=== PATIENT | female | born 1955 | race African-American/Black ===

== ENCOUNTER 2024-05-26 10:49 | Emergency (ER) | payer OTHER, MEDICAID ==
[~2024-05-26] VITALS: Ht 165.1 cm; Wt 81.0 kg
--- NOTE | 2024-05-26 11:00 | ED.PDOC ---
HPI Comments 68 year old female brought in by EMS presents to the ED with a chief complaint of palpitations onset 1 week. Patient states she has been experiencing intermittent palpitations for the past week, noticed it worsens with movement. Patient has not seen PCP due to change of insurance, called [facility] this morning and was told to call EMS. Patient noticed palpitations worsen last night when she was sleeping. Has not been compliant with DM medication. PMHx DM, HTN. Denies chest pain, shortness of breath, diarrhea, headache, nausea, vomiting, dizziness, blurry vision, fever, chills, dysuria. No other symptoms or modifying factors present at this time. Chief Complaint: Palpitations Time Seen by MD: 10:52 Reviewed Notes: Medications, Allergies Allergies: Coded Allergies: NO KNOWN ALLERGIES (Unverified , 05/26/24) Information Source: Patient, Emergency Med Personnel Mode of Arrival: EMS Severity: Moderate Timing: Weeks Duration: Intermittent Prehospital treatment: None Quality: Other Onset: With Light Exertion, While Asleep Cardiac Risk Factors: HTN, Diabetes History of: None Modifying Factors: Nothing Associated Signs and Symptoms: Palpitations Past Medical History PAST MEDICAL HISTORY: DM, HTN Surgical History: Denies all surgeries UPPER TIER History: No Pertinent UPPER TIER History Family History Family History: Reviewed,noncontributory to illness, No family hx of Cancer, No family hx of DM, No family hx of Heart vonnie, No family hx of HTN, No family hx ofKidney vonnie, No family hx of Liver vonnie, No family hx of Lung vonnie, No family hx of Stroke Social History Smoker: Non-Smoker Alcohol: Denies ETOH Use Drugs: Denies Drug Use Lives In: Home Constitutional: denies: chills, diaphoresis, fatigue, fever, malaise, sweats, weakness, others EENTM: denies: blurred vision, double vision, ear bleeding, ear discharge, ear drainage, ear pain, ear ringing, eye pain, eye redness, hearing loss, mouth pain, mouth swelling, nasal discharge, nose bleeding, nose congestion, nose pain, photophobia, tearing, throat pain, throat swelling, voice changes, others Respiratory: denies: cough, hemoptysis, orthopnea, SOB at rest, shortness of breath, SOB with excertion, stridor, wheezing, others Cardiovascular: reports: palpitations; denies: chest pain, dizzy spells, diaphoresis, Dyspnea on exertion, edema, irregular heart beat, left arm pain, lightheadedness, PND, syncope, others Gastrointestinal: denies: abdomen distended, abdominal pain, blood streaked bowels, constipated, diarrhea, dysphagia, difficulty swallowing, hematemesis, melena, nausea, poor appetite, poor fluid intake, rectal bleeding, rectal pain, vomiting, others Genitourinary: denies: abnormal vagina bleeding, burning, dyspareunia, dysuria, flank pain, frequency, hematuria, incontinence, pain, , vagina discharge, urgency, others Neurological: denies: dizziness, fainting, headache, left sided numbness, left sided weakness, numbness, paresthesia, pre-existing deficit, right sided numb ness, right sided weakness, seizure, speech problems, tingling, tremors, weakness, others Musculoskeletal: denies: back pain, gout, joint pain, joint swelling, muscle pain, muscle stiffness, neck pain, others Integumetry: denies: bruises, change in color, change in hair/nails, dryness, laceration, lesions, lumps, rash, wounds, others Allergic/Immunocompromised: denies: Difficulty Healing, Frequent Infections, Hives, Itching, others Hematologic/Lymphatic: denies: anemia, blood clots, easy bleeding, easy bruising, swollen glands, others Endocrine: denies: excessive hunger, excessive sweating, excessive thirst, excessive urination, flushing, intolerance to cold, intolerance to heat, unexplained weight gain, unexplained weight loss, others Psychiatric: denies: anxiety, bipolar disorder, depression, hopeless, panic disorder, schizophrenia, sleepless, suicidal, others All Other Systems: Reviewed and Negative Physical Exam General Appearance: Moderate Distress, Normal HEENT: Normal ENT Inspection, Pharynx Normal, TMs Normal Neck: Full Range of Motion, Non-Tender, Normal, Normal Inspection Respiratory: Chest Non-Tender, Lungs Clear, No Accessory Muscle Use, No Respiratory Distress, Normal Breath Sounds Cardiovascular: No Edema, No JVD, No Murmur, No Gallop, Normal Peripheral Pulses, Regular Rate/Rhythm Breast Exam: Deferred Gastrointestinal: No Organomegaly, Non Tender, No Pulsatile Mass, Normal Bowel Sounds, Soft Genitalia: Deferred Pelvic: Deferred Rectal: Deferred Extremities: No calf tenderness, Normal capillary refill, Normal inspection, Normal range of motion, Non-tender, No pedal edema Musculoskeletal : Apperance: Normal Neurologic: Alert, floor layer apprentice II-XII nml as Tested, No Motor Deficits, Normal Affect, Normal Mood, No Sensory Deficits Cerebellar Function: NOT DONE Reflexes: NOT DONE Skin: Dry, Normal Color, Warm Peripheral Pulses: 3+ Radial (R), 3+ Radial (L) Lymphatic: No Adenopathy Was a procedure done? Was a procedure done?: No CP Differential Dx Differential Diagnosis: A-fib, A-Flutter, Angina, Anxiety / Panic Attack, Atrial Dysrhythmia, Electrolyte Disorder X-Ray, Labs, Meds, VS Vital Signs Date Time Temp Pulse Resp B/P (MAP) Pulse Ox O2 Delivery O2 Flow Rate FiO2 05/26/24 12:18 98.1 74 20 132/75 (94) 98 98.1 05/26/24 10:54 78 05/26/24 10:53 98.2 70 18 155/102 (119) 97 Lab Test 05/26/24 12:36 05/26/24 12:00 05/26/24 11:10 Range/Units Troponin I High Sensitivity 3 L < 3 L </=34 ng/L Urine Color Colorless Yellow Urine Clarity Turbid H Clear Urine pH 5.0 5.0-9.0 Urine Specific [place] 1.014 1.001-1.035 Urine Protein Negative Negative Urine Ketones 1+ H Negative Urine Blood 1+ H Negative /uL Urine Nitrite Negative Negative Urine Bilirubin Negative Negative Urine Urobilinogen Normal Negative mg/dL Urine Leukocyte Esterase 2+ Negative /uL Urine RBC 1 0 - 4 /hpf Urine Microscopic WBC 5 0-5 /HPF Urine Squamous Epithelial Cells Few <5 /hpf Urine Bacteria Few H None Seen /hpf Urine Mucus Few None Seen Urine Glucose Normal Normal mg/dL White Blood Count 2.5 L 4.4-10.8 10^3/uL Red Blood Count 5.06 4.0-5.20 10^6/uL Hemoglobin 13.7 12.2-16.2 g/dL Hematocrit 41.5 36.0-46.0 % Mean Corpuscular Volume 82.1 80.0-100.0 fL Mean Corpuscular Hemoglobin 27.0 L 28.0-32.0 pg Mean Corpuscular Hemoglobin Concent 32.9 32.0-36.0 g/dL Red Cell Distribution Width 13.5 11.8-14.3 % Platelet Count 209 140-450 10^3/uL Mean Platelet Volume 8.2 6.9-10.8 fL Neutrophils (%) (Auto) 42.9 37.0-80.0 % Lymphocytes (%) (Auto) 45.4 10.0-50.0 % Monocytes (%) (Auto) 6.9 0.0-12.0 % Eosinophils (%) (Auto) 3.7 0.0-7.0 % Basophils (%) (Auto) 1.1 0.0-2.0 % Neutrophils # (Auto) 1.1 L 1.6-8.6 10 ^3/uL Lymphocytes # (Auto) 1.1 0.4-5.4 10 ^3/uL Monocytes # (Auto) 0.2 0-1.3 10 ^3/uL Eosinophils # (Auto) 0.1 0-0.8 10 ^3/uL Basophils # (Auto) 0 0-0.2 10 ^3/uL Nucleated Red Blood Cells 0.4 % Sodium Level 141 136-145 mmol/L Potassium Level 4.0 3.5-5.1 mmol/L Chloride Level 105 98-107 mmol/L Carbon Dioxide Level 25 20-31 mmol/L Anion Gap 11 5-15 Blood Urea Nitrogen 18 9-23 mg/dL Creatinine 0.84 0.550-1.02 mg/dL Glomerular Filtration Rate Calc 76 >90 mL/min BUN/Creatinine Ratio 21.4 H 10.0-20.0 Serum Glucose 104 74-106 mg/dL Calcium Level 9.8 8.7-10.4 mg/dL Patient alert. Complaining of palpitations. Vitals stable. Answering questions. EKG reviewed does not show any acute changes. Cardiac marker within normal limits. She states that chest pain resolved. She had no chest pain upon arrival to the ER. Blood pressure normalized. Hemoglobin within normal limits pain Explained to the patient. No leg swelling pain No shortness a breath. Saturation pristine on room air. Heart rate within normal limits. Good skin color. No discoloration. No sign of any sepsis. Does not meet any criteria. Possibly has mitral valve disease. She will need to follow up with an echocardiogram with her primary care physician office. Urinalysis shows UTI. Was given prescription of Macrobid antibiotic. Explained to the patient. Was told to follow up with her primary care physician. Was told to come back if there is any problem. Time of 1ST Reevaluation: 11:22 Reevaluation 1ST: Improved Time of 2ND Reevaluation: 13:16 Reevaluation 2ND: Improved Patient Education/Counseling: Diagnosis, Treatment, Prognosis Family Education/Counseling: No Family Present Additional Information The following tests were ordered, and results were reviewed by me: TROP-x3, EKG -x3, CBC, UA, BMP Additional Information was gathered from interviewing the following independent historians: EMS I discussed treatment and results with medical personnel and: patient Departure 1 Departure Time of Disposition: 13:15 Impression: Primary Impression: Mitral valve disease Additional Impression: UTI (urinary tract infection) Qualified Codes: N30.00 - Acute cystitis without hematuria Disposition: HOME / SELF CARE / HOMELESS Condition: Good e-Prescriptions Nitrofurantoin Monohydrate Mac (Macrobid) 100 Mg Cap 100 MG PO BID for 5 Days, #10 CAP Prov: KATTY ALONZO MD 05/26/24 Discharged With: Self Critical Care Note Critical Care Time?: No Stability Stability form required: No Heart Score Heart Score: Heart Score Response (Comments) Value History Slightly Suspicious 0 EKG Normal 0 Age >65 2 Risk Factors 1 or 2 risk factors 1 Troponin Normal limit 0 Total 3 I personally scribed for KATTY ALONZO MD ([email or web address]) on 05/26/24 at 11:00. Electronically submitted by Heather Barboza ([email or web address]). I personally scribed for KATTY ALONZO MD ([email or web address]) on 05/26/24 at 11:32. Electronically submitted by Heather Barboza ([email or web address]). KATTY ALONZO MD May 26, 2024 11:00
[2024-05-26 11:36] LABS: Basophils # (auto) 0 10 ^3/uL (0-0.2); Basophils % (auto) 1.1 % (0.0-2.0); Eosinophils # (auto) 0.1 10 ^3/uL (0-0.8); Eosinophils % (auto) 3.7 % (0.0-7.0); Hematocrit 41.5 % (36.0-46.0); Hemoglobin 13.7 g/dL (12.2-16.2); Lymphocytes # (auto) 1.1 10 ^3/uL (0.4-5.4); Lymphocytes % (auto) 45.4 % (10.0-50.0); Mean Corpuscular Hgb Conc. 32.9 g/dL (32.0-36.0); Mean Corpuscular Volume 82.1 fL (80.0-100.0); Monocytes # (auto) 0.2 10 ^3/uL (0-1.3); Monocytes % (auto) 6.9 % (0.0-12.0); Neutrophils # (auto) 1.1 10 ^3/uL (1.6-8.6); Neutrophils % (auto) 42.9 % (37.0-80.0); Nucleated Red Blood Cells % 0.4 %; Platelet Count (auto) 209 10^3/uL (140-450); Red Blood Cells 5.06 10^6/uL (4.0-5.20); Red Cell Distribution Width 13.5 % (11.8-14.3); White Blood Cell 2.5 10^3/uL (4.4-10.8)
[2024-05-26 11:57] LABS: Anion Gap 11 (5-15); Carbon Dioxide 25 mmol/L (20-31); Chloride 105 mmol/L (98-107); Sodium 141 mmol/L (136-145)
[2024-05-26 11:59] LABS: Calcium 9.8 mg/dL (8.7-10.4)
[2024-05-26 12:03] LABS: BUN/Creatinine Ratio 21.4 (10.0-20.0); Blood Urea Nitrogen 18 mg/dL (9-23); Glucose 104 mg/dL (74-106)
[2024-05-26 12:53] LABS: Urine Bacteria FEW /hpf (None Seen); Urine Blood 1+ /uL (Negative); Urine Clarity Turbid (Clear); Urine Color Colorless (Yellow); Urine Mucus FEW (None Seen); Urine Protein, UAD Negative (Negative); Urine Specific Gravity 1.014 (1.001-1.035); Urine Squamous Epithelial Cell FEW /hpf (<5); Urine Urobilinogen Normal (Negative); Urine WBC 5 /HPF (0-5)
[2024-05-26] MEDS ORDERED: NITR-87 PO (14:13)
[2024-05-26 14:41] VITALS: BP 120/60; PULSE 83; RESP 15; TEMP 98; O2SAT 99
--- NOTE | 2024-05-29 12:13 | ECG ---
[facility] Test Date: 2024-05-26 Test Time: 10:54:55 Pat Name: LONG FRANKS Department: er Room: Gender: F Lead Custodian: aman : 1955 Requested By: KATTY ALONZO Order Number: [id number] Reading MD: Gabe Salas Measurements Intervals [place] Rate: 78 P: 92 TX: 161 QRS: 53 QRSD: 92 T: 82 QT: 372 QTc: 424 Interpretive Statements Sinus rhythm Nonspecific T abnormalities, lateral leads Baseline wander in lead(s) I,II,aVR,aVF,V2,V4,V6 Electronically Signed On 05-31-2024 17:12:21 PST by Gabe Salas Electronically Signed On 06-04-2024 16:31:43 PDT by Gabe Salas Please click the below link to view image of tracing.
== END 2024-05-26 14:41 | disposition home or self-care (01) ==
LOC: ER 10:49 → EDBD 10:49 → ER 14:41
DX: I05.9 Rheumatic mitral valve disease, unspecified (principal); N39.0 Urinary tract infection, site not specified; I10 Essential (primary) hypertension; E11.9 Type 2 diabetes mellitus without complications
CPT/HCPCS: 36415; 80048; 81001; 84484; 85025; 93005